=== PATIENT | male | born 1975 | race Caucasian/White ===

== ENCOUNTER 2019-05-02 08:59 | Inpatient (IN) | payer OTHER | END 2019-05-06 11:40 | disposition home or self-care (01) | LOC: YASAS 08:59 → Y6N 05-04 20:14 → YASAS 09:06 → Y6N 12:14 ==

== ENCOUNTER 2019-12-07 10:41 | Inpatient (IN) | payer OTHER ==
[2019-12-07 11:13] VITALS: BMI 30.2
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
[2019-12-07] MEDS ORDERED: chlordiazePOXIDE HCL 25 MG CAPSULE PO PRN (14:18)
[2019-12-07] MEDS ORDERED: MAGNESIUM CITRATE 300 ML BOTTLE PO PRN (14:18)
[2019-12-07] MEDS ORDERED: hydrOXYzine PAMOATE 25 MG CAPSULE (FP) PO PRN (14:18)
[2019-12-07] MEDS ORDERED: MENTHOL/PHENOL 1 EACH UD MM PRN (14:18)
[2019-12-07] MEDS ORDERED: MAGNESIUM HYDROX 2400MG/30ML ORAL SUSPENSION 30 ML CUP PO PRN (14:18)
[2019-12-07] MEDS ORDERED: BISMUTH SUBSALICYLATE 262 MG/15 ML BTL PO PRN (14:18)
[2019-12-07] MEDS ORDERED: IBUPROFEN 400 MG TABLET (FP) PO PRN (14:18)
[2019-12-07] MEDS ORDERED: MAG HYDROX/AL HYDROX/SIMETH 30 ML UNIT-DOSE CUP PO PRN (14:18)
[2019-12-07] MEDS ORDERED: METHOCARBAMOL 500 MG TABLET PO PRN (14:18)
[2019-12-07] MEDS ORDERED: ACETAMINOPHEN 325 MG TABLET (FP) PO PRN ×2 (14:18)
[2019-12-07] MEDS ORDERED: MELATONIN 5 MG TABLETS PO PRN (14:18)
--- NOTE | 2019-12-07 14:22 | PN ---
Teaching Attending Note Name of Resident: Curt Catherine ATTENDING PHYSICIAN STATEMENT I saw and evaluated the patient. I reviewed the resident's note and discussed the case with the resident. I agree with the resident's findings and plan as documented. SUBJECTIVE: pt here requesting detox from etoh use , s/p ER @ [facility] x 20 hrs givem Librium and Ativan in the ER . Denies other illicits or tobacco. OBJECTIVE: wnwd , tremulous Vital Signs - 24 hr 12/07/19 10:59 Temperature 98.5 F Pulse Rate 107 H Respiratory 20 Rate Blood Pressure 151/98 ASSESSMENT AND PLAN: Alcohol dependence - Librium detox.
[2019-12-07] MEDS ORDERED: chlordiazePOXIDE HCL 25 MG CAPSULE PO ONE (15:30)
[2019-12-07] MEDS ORDERED: INSULIN SLIDING SCALE (NOVOLOG) 1 VIAL SQ SCH (16:30)
[2019-12-07] MEDS: chlordiazePOXIDE HCL 25 MG CAPSULE PO SCH ×2 (17:13→22:33)
[2019-12-07] MEDS: THIAMINE HCL 100 MG TABLET (FP) PO SCH (22:33)
[2019-12-08] MEDS: chlordiazePOXIDE HCL 25 MG CAPSULE PO SCH ×4 (06:48→22:23)
[2019-12-08 09:45] LABS: HEMATOCRIT 42.5 % (35.4-49); HEMOGLOBIN 14.7 GM/dL (11.7-16.9); MCH 32.8 pg (25.7-33.7); MCHC 34.5 g/dl (32.0-35.9); MEAN CELL VOLUME 95.2 fl (80-96); MEAN PLT VOLUME 9.1 fl (7.5-11.1); PLATELET COUNT 126 K/MM3 (134-434); RBC 4.47 M/mm3 (4.00-5.60); RDW 14.1 % (11.9-15.9); WHITE BLOOD COUNT 3.6 K/mm3 (4.0-10.0)
[2019-12-08 09:51] LABS: ALBUMIN 3.2 g/dl (3.4-5.0); BILIRUBIN,TOTAL 1.6 mg/dL (0.2-1); BLOOD UREA NITROGEN 6.2 mg/dL (7-18); CALCIUM 8.3 mg/dL (8.5-10.1); CREATININE 0.9 mg/dL (0.55-1.3); POTASSIUM 3.2 mmol/L (3.5-5.1); TOT PROT 6.3 g/dl (6.4-8.2)
[2019-12-08] MEDS ORDERED: PRENATAL VITAMINS W/ FOLIC ACID TABLET (FP) PO SCH (10:00)
--- NOTE | 2019-12-08 14:25 | PN ---
S CIWA - CIWA Score Nausea/Vomitin Muscle Tremors: 1-None Visible, but [place] Anxiety: 1-Mildly Anxious Agitation: 0-Normal Activity Paroxysmal Sweats: 2 Orientation: 0-Oriented Tacttile Disturbances: 1-Very Mild Itch/Numbness Auditory Disturbances: 0-None Visual Disturbances: 0-None Headache: 0-None Present CIWA-Ar Total Score: 8 BHS Progress Note (SOAP) Subjective: sweats,diarrhea, feels librium is too sedating Objective: 12/08/19 14:22 Vital Signs Temperature 98.2 F 12/08/19 13:11 Pulse Rate 71 12/08/19 13:11 Respiratory Rate 18 12/08/19 13:11 Blood Pressure 144/101 H 12/08/19 13:11 O2 Sat by Pulse Oximetry (%) Vital Signs Temperature 98.2 F 12/08/19 13:11 Pulse Rate 71 12/08/19 13:11 Respiratory Rate 18 12/08/19 13:11 Blood Pressure 144/101 H 12/08/19 13:11 O2 Sat by Pulse Oximetry (%) Laboratory Tests 12/07/19 12/08/19 12/08/19 14:53 08:10 08:10 WBC 3.6 L RBC 4.47 Hgb 14.7 Hct 42.5 MCV 95.2 MCH 32.8 MCHC 34.5 RDW 14.1 Plt Count 126 L MPV 9.1 Sodium 140 Potassium 3.2 L Chloride 107 Carbon Dioxide 29 Anion Gap 4 L BUN 6.2 L Creatinine 0.9 Est GFR (CKD-EPI)AfAm 119.97 Est GFR (CKD-EPI)NonAf 103.51 POC Glucometer 115 Random Glucose 94 Calcium 8.3 L Total Bilirubin 1.6 H AST 48 H ALT 51 Alkaline Phosphatase 117 Total Protein 6.3 L Albumin 3.2 L RPR Titer 12/08/19 08:10 WBC RBC Hgb Hct MCV MCH MCHC RDW Plt Count MPV Sodium Potassium Chloride Carbon Dioxide Anion Gap BUN Creatinine Est GFR (CKD-EPI)AfAm Est GFR (CKD-EPI)NonAf POC Glucometer Random Glucose Calcium Total Bilirubin AST ALT Alkaline Phosphatase Total Protein Albumin RPR Titer Nonreactive pt aox 3 in nad c/o being too sedated with librium Assessment: 12/08/19 14:23 withdrawal sx's - over sedated with librium \hypokalemia 12/08/19 14:27 Plan: withdrawal sxls , increase fluids hold librium kcl 40 becky x 2 dose
[2019-12-08] MEDS: POTASSIUM CHLORIDE ORAL LIQUID 20 MEQ/15 ML PO SCH ×2 (15:50→19:11)
[2019-12-08] MEDS ORDERED: LOPERAMIDE HCL 2 MG CAPSULE PO PRN (18:07)
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
[2019-12-08] MEDS: THIAMINE HCL 100 MG TABLET (FP) PO SCH (22:23)
[2019-12-09] MEDS ORDERED: chlordiazePOXIDE HCL 25 MG CAPSULE PO SCH (05:00)
[2019-12-09] MEDS ORDERED: buPROPion HCL 100 MG TABLET PO SCH (09:00)
[2019-12-09 09:03] VITALS: BP 124/86; PULSE 77; TEMP 96.2
--- NOTE | 2019-12-09 09:46 | DS ---
[facility] Detox Discharge Summary Admission Date: 12/07/19 Discharge Date: 12/09/19 - History Present History: Alcohol Dependence Additional Comments: 44 years old male admitted on 12/07/19 for alcohol withdrawal sx management treated with librim detox regimen prefers to leave the detox today to begin chemical dependent rehab patient is alert oriented x 3 case discussed with the nurse routine discharge is appropriated respiratory clear lungs bilaterally on auscultation skin warm and dry abdomen soft obese no rebound tenderness - Physical Exam Results Vital Signs: Vital Signs Temperature 96.2 F L 12/09/19 09:02 Pulse Rate 77 12/09/19 09:02 Respiratory Rate 19 12/09/19 09:02 Blood Pressure 124/86 12/09/19 09:02 O2 Sat by Pulse Oximetry (%) Pertinent Admission Physical Exam Findings: alcohol withdrawal Laboratory Last Values WBC 3.6 K/mm3 (4.0-10.0) L 12/08/19 08:10 RBC 4.47 M/mm3 (4.00-5.60) 12/08/19 08:10 Hgb 14.7 GM/dL (11.7-16.9) 12/08/19 08:10 Hct 42.5 % (35.4-49) 12/08/19 08:10 MCV 95.2 fl (80-96) 12/08/19 08:10 MCH 32.8 pg (25.7-33.7) 12/08/19 08:10 MCHC 34.5 g/dl (32.0-35.9) 12/08/19 08:10 RDW 14.1 % (11.9-15.9) 12/08/19 08:10 Plt Count 126 K/MM3 (134-434) L 12/08/19 08:10 MPV 9.1 fl (7.5-11.1) 12/08/19 08:10 Sodium 140 mmol/L (136-145) 12/08/19 08:10 Potassium 3.2 mmol/L (3.5-5.1) L 12/08/19 08:10 Chloride 107 mmol/L (98-107) 12/08/19 08:10 Carbon Dioxide 29 mmol/L (21-32) 12/08/19 08:10 Anion Gap 4 MMOL/L (8-16) L 12/08/19 08:10 BUN 6.2 mg/dL (7-18) L 12/08/19 08:10 Creatinine 0.9 mg/dL (0.55-1.3) 12/08/19 08:10 Est GFR (CKD-EPI)AfAm 119.97 12/08/19 08:10 Est GFR (CKD-EPI)NonAf 103.51 12/08/19 08:10 POC Glucometer 115 UNITS (80-120) 12/07/19 14:53 Random Glucose 94 mg/dL (74-106) 12/08/19 08:10 Calcium 8.3 mg/dL (8.5-10.1) L 12/08/19 08:10 Total Bilirubin 1.6 mg/dL (0.2-1) H 12/08/19 08:10 AST 48 U/L (15-37) H 12/08/19 08:10 ALT 51 U/L (13-61) 12/08/19 08:10 Alkaline Phosphatase 117 U/L (45-117) 12/08/19 08:10 Total Protein 6.3 g/dl (6.4-8.2) L 12/08/19 08:10 Albumin 3.2 g/dl (3.4-5.0) L 12/08/19 08:10 RPR Titer Nonreactive (NONREACTIVE) 12/08/19 08:10 lab noted low K+ received 80meq K+ supplement patient agrees to follow up with his primary care provider or [facility] service for follow up - Treatment Hospital Course: Detox Protocol Followed, Detoxed Safely, Responded well, Discharged Condition Good, Rehab Referral Accepted Patient has Accepted [facility] Referral [facility] - Medication Discharge Medications: Ambulatory Orders Acamprosate Calcium [Campral -] 666 mg PO TID 12/07/19 Bupropion HCl [Wellbutrin -] 100 mg PO BID 12/07/19 Folic Acid 1 mg PO DAILY 12/07/19 Multivitamins [Multivit ([facility] Formulary)] 1 tab PO DAILY 12/07/19 Pantoprazole Sodium [Protonix] 40 mg PO DAILY 12/07/19 Thiamine HCl [B-1] 100 mg PO DAILY 12/07/19 - Diagnosis (1) Alcohol dependence with uncomplicated withdrawal Status: Acute (2) Tobacco abuse Status: Acute (3) Alcohol dependence with uncomplicated intoxication Status: Acute (4) Substance induced mood disorder Status: Suspected - AMA Did Patient Leave Against Medical Advice: No CIWA Score - CIWA Score Nausea/Vomitin-Mild Nausea/No Vomiting Muscle Tremors: 1-None Visible, but [place] Anxiety: 1-Mildly Anxious Agitation: 0-Normal Activity Paroxysmal Sweats: No Perspiration Orientation: 0-Oriented Tacttile Disturbances: 0-None Auditory Disturbances: 0-None Visual Disturbances: 0-None Headache: 0-None Present CIWA-Ar Total Score: 3
[2019-12-10] MEDS ORDERED: chlordiazePOXIDE HCL 10 MG CAPSULE PO PRN
[2019-12-10] MEDS ORDERED: chlordiazePOXIDE HCL 10 MG CAPSULE PO SCH (05:00)
[2019-12-11] MEDS ORDERED: chlordiazePOXIDE HCL 10 MG CAPSULE PO SCH (05:00)
[2019-12-12] MEDS ORDERED: chlordiazePOXIDE HCL 10 MG CAPSULE PO ONE (05:00)
== END 2019-12-09 10:52 | disposition home or self-care (01) | DRG 775 ==
LOC: YASAS 10:41 → Y3N 15:20
PROVIDERS: ADMIT Allergy & Immunology; ATTEND Allergy & Immunology
PROC: HZ2ZZZZ Detoxification Services for Substance Abuse Treatment (ICD-10-PCS; principal; 2019-12-07)
DX: F10.230 Alcohol dependence with withdrawal, uncomplicated (principal); F10.220 Alcohol dependence with intoxication, uncomplicated; Z72.0 Tobacco use; F19.24 Other psychoactive substance dependence with psychoactive substance-induced mood disorder; F41.9 Anxiety disorder, unspecified; F32.9 Major depressive disorder, single episode, unspecified; E11.9 Type 2 diabetes mellitus without complications; E87.6 Hypokalemia; Z86.69 Personal history of other diseases of the nervous system and sense organs
CPT/HCPCS: 36415; 80053; 82962; 85027; 86593

== ENCOUNTER 2020-11-20 15:21 | Inpatient (IN) | payer OTHER ==
[2020-11-20 17:16] VITALS: BMI 28.9
[2020-11-20] MEDS ORDERED: ONDANSETRON *ODT* 4 MG TABLET SL ONE (17:19)
[2020-11-20] MEDS ORDERED: chlordiazePOXIDE HCL 25 MG CAPSULE PO ONE (17:19)
[2020-11-20] MEDS ORDERED: chlordiazePOXIDE HCL 25 MG CAPSULE ONE (17:27)
[2020-11-20] MEDS ORDERED: ONDANSETRON *ODT* 4 MG TABLET ONE ×2 (17:27→17:29)
[2020-11-20] MEDS ORDERED: guaiFENesin 200 MG/10 ML 10 ML UNIT-DOSE CUPS PO PRN (17:43)
[2020-11-20] MEDS ORDERED: IBUPROFEN 400 MG TABLET (FP) PO PRN (17:43)
[2020-11-20] MEDS ORDERED: MAGNESIUM HYDROX 2400MG/30ML ORAL SUSPENSION 30 ML CUP PO PRN (17:43)
[2020-11-20] MEDS ORDERED: MENTHOL/PHENOL 1 EACH UD MM PRN (17:43)
[2020-11-20] MEDS ORDERED: ONDANSETRON *ODT* 4 MG TABLET SL PRN (17:43)
[2020-11-20] MEDS ORDERED: DICYCLOMINE HCL 10 MG CAPSULE PO PRN (17:43)
[2020-11-20] MEDS ORDERED: METHOCARBAMOL 500 MG TABLET PO PRN (17:43)
[2020-11-20] MEDS ORDERED: MAGNESIUM CITRATE 300 ML BOTTLE PO PRN (17:43)
[2020-11-20] MEDS ORDERED: ACETAMINOPHEN 325 MG TABLET (FP) PO PRN (17:43)
[2020-11-20] MEDS ORDERED: P-EPHED 60MG/TRIPROLIDI 2.5MG TABLET PO PRN (17:43)
[2020-11-20] MEDS ORDERED: MAG HYDROX/AL HYDROX/SIMETH 30 ML UNIT-DOSE CUP PO PRN (17:43)
[2020-11-20] MEDS ORDERED: BISMUTH SUBSALICYLATE 524 MG/30 ML PO PRN (17:43)
[2020-11-20] MEDS ORDERED: hydrOXYzine PAMOATE 25 MG CAPSULE (FP) PO PRN (17:43)
[2020-11-20] MEDS ORDERED: chlordiazePOXIDE HCL 25 MG CAPSULE PO PRN (17:43)
[2020-11-20] MEDS: PANTOPRAZOLE 40 MG TABLET PO SCH (20:23)
[2020-11-20] MEDS: THIAMINE HCL 100 MG TABLET (FP) PO SCH (22:36)
[2020-11-20] MEDS: chlordiazePOXIDE HCL 25 MG CAPSULE PO SCH (22:36)
[2020-11-20] MEDS: MELATONIN 5 MG TABLETS PO SCH (22:36)
[2020-11-20] MEDS: ACETAMINOPHEN 325 MG TABLET (FP) PO PRN (22:37)
[2020-11-21] MEDS: chlordiazePOXIDE HCL 25 MG CAPSULE PO SCH ×4 (05:32→22:21)
[2020-11-21] MEDS ORDERED: MASKS NR ONE (05:34)
[2020-11-21] MEDS: ACETAMINOPHEN 325 MG TABLET (FP) PO PRN ×2 (05:37→17:49)
[2020-11-21] MEDS: PRENATAL VITAMINS W/ FOLIC ACID TABLET (FP) PO SCH (10:14)
[2020-11-21] MEDS: PANTOPRAZOLE 40 MG TABLET PO SCH (10:14)
[2020-11-21 10:57] LABS: HEMOGLOBIN 13.7 GM/dL (11.7-16.9); MCH 33.1 pg (25.7-33.7); MCHC 34.2 g/dl (32.0-35.9); MEAN CELL VOLUME 96.8 fl (80-96); MEAN PLT VOLUME 9.3 fl (7.5-11.1); PLATELET COUNT 151 K/MM3 (134-434); RBC 4.13 M/mm3 (4.00-5.60); RDW 15.1 % (11.9-15.9); WHITE BLOOD COUNT 3.7 K/mm3 (4.0-10.0)
[2020-11-21 10:59] LABS: PH,URINE 6.5 (5.0-8.0); URINE APPEARANCE Error; URINE BILIRUBIN NEGATIVE (NEGATIVE); URINE COLOR ORANGE; URINE GLUCOSE (UA) NEGATIVE (NEGATIVE); URINE KETONE TRACE (NEGATIVE); URINE LEUK ESTERASE NEGATIVE (NEGATIVE); URINE NITRITE NEGATIVE (NEGATIVE); URINE PROTEIN NEGATIVE (NEGATIVE)
[2020-11-21 11:29] LABS: ALBUMIN 3.3 g/dl (3.4-5.0); BILIRUBIN,TOTAL 1.3 mg/dL (0.2-1); BLOOD UREA NITROGEN 12.8 mg/dL (7-18); CALCIUM 8.5 mg/dL (8.5-10.1); TOT PROT 6.5 g/dl (6.4-8.2)
[2020-11-21] MEDS ORDERED: PNEUMOC 13-VAL CONJ-DIP CRM/PF 0.5 ML DISP.SYRIN IM ONE (12:00)
[2020-11-21] MEDS: buPROPion HCL 100 MG TABLET PO SCH (18:00)
[2020-11-21] MEDS: MELATONIN 5 MG TABLETS PO SCH (22:21)
[2020-11-21] MEDS: THIAMINE HCL 100 MG TABLET (FP) PO SCH (22:21)
[2020-11-22] MEDS: chlordiazePOXIDE HCL 25 MG CAPSULE PO SCH ×4 (05:54→22:28)
[2020-11-22] MEDS: buPROPion HCL 100 MG TABLET PO SCH ×2 (11:01→17:30)
[2020-11-22] MEDS: PANTOPRAZOLE 40 MG TABLET PO SCH (11:02)
[2020-11-22] MEDS: PRENATAL VITAMINS W/ FOLIC ACID TABLET (FP) PO SCH (11:02)
[2020-11-22] MEDS: POTASSIUM CHLORIDE TABS 20 MEQ TABLET.ER (FP) PO SCH (11:02)
[2020-11-22 21:57] VITALS: BP 134/93; PULSE 70; TEMP 98
[2020-11-22] MEDS: THIAMINE HCL 100 MG TABLET (FP) PO SCH (22:29)
[2020-11-22] MEDS: MELATONIN 5 MG TABLETS PO SCH (22:29)
[2020-11-23] MEDS ORDERED: chlordiazePOXIDE HCL 10 MG CAPSULE PO PRN
[2020-11-23] MEDS ORDERED: chlordiazePOXIDE HCL 10 MG CAPSULE PO SCH (05:00)
[2020-11-23] MEDS: ACETAMINOPHEN 325 MG TABLET (FP) PO PRN (05:32)
[2020-11-23] MEDS: buPROPion HCL 100 MG TABLET PO SCH (09:07)
[2020-11-23] MEDS: POTASSIUM CHLORIDE TABS 20 MEQ TABLET.ER (FP) PO SCH (09:07)
[2020-11-23 09:19] LABS: BASO % 0.3 % (0-2.0); EOS % 3.1 % (0-4.5); HEMATOCRIT 40.3 % (35.4-49); HEMOGLOBIN 13.6 GM/dL (11.7-16.9); LYMPH % 16.5 % (8-40); MCH 32.8 pg (25.7-33.7); MCHC 33.7 g/dl (32.0-35.9); MEAN CELL VOLUME 97.3 fl (80-96); MEAN PLT VOLUME 9.6 fl (7.5-11.1); MONO % 8.8 % (3.8-10.2); NEUT % 71.3 % (42.8-82.8); PLATELET COUNT 165 K/MM3 (134-434); RBC 4.14 M/mm3 (4.00-5.60); WHITE BLOOD COUNT 7.2 K/mm3 (4.0-10.0)
[2020-11-23 10:28] LABS: ALBUMIN 3.6 g/dl (3.4-5.0); BLOOD UREA NITROGEN 12.7 mg/dL (7-18); CALCIUM 8.6 mg/dL (8.5-10.1)
[2020-11-23 10:33] LABS: BILIRUBIN,TOTAL 0.6 mg/dL (0.2-1)
[2020-11-24] MEDS ORDERED: chlordiazePOXIDE HCL 10 MG CAPSULE PO SCH (05:00)
[2020-11-25] MEDS ORDERED: chlordiazePOXIDE HCL 10 MG CAPSULE PO ONE (05:00)
[2020-11-27 17:49] LABS: HIV INTERPRETATION NEGATIVE (NEGATIVE)
== END 2020-11-23 09:19 | disposition left against medical advice (07) | DRG 770 ==
LOC: YASAS 15:21 → Y6N 18:50
PROVIDERS: ADMIT Allergy & Immunology; ATTEND Allergy & Immunology
PROC: HZ2ZZZZ Detoxification Services for Substance Abuse Treatment (ICD-10-PCS; principal; 2020-11-20)
DX: F10.230 Alcohol dependence with withdrawal, uncomplicated (principal); F10.220 Alcohol dependence with intoxication, uncomplicated; F10.24 Alcohol dependence with alcohol-induced mood disorder; F10.282 Alcohol dependence with alcohol-induced sleep disorder; F17.210 Nicotine dependence, cigarettes, uncomplicated; F32.9 Major depressive disorder, single episode, unspecified; F19.24 Other psychoactive substance dependence with psychoactive substance-induced mood disorder; I10 Essential (primary) hypertension; E63.8 Other specified nutritional deficiencies; E75 Disorders of sphingolipid metabolism and other lipid storage disorders; K29.20 Alcoholic gastritis without bleeding; Z86.69 Personal history of other diseases of the nervous system and sense organs; Z91.14 Patient's other noncompliance with medication regimen
CPT/HCPCS: 36415; 80053; 81003; 82962; 85025; 85027; 86780; 87389; 93005; 93010; C9803; Q0162; U0003

== ENCOUNTER 2022-01-30 08:30 | Inpatient (IN) | payer OTHER ==
[2022-01-30 08:55] VITALS: BMI 29.6
[2022-01-30] MEDS ORDERED: chlordiazePOXIDE HCL 25 MG CAPSULE PO PRN (10:02)
[2022-01-30] MEDS ORDERED: MAGNESIUM HYDROX 2400MG/30ML ORAL SUSPENSION 30 ML CUP PO PRN (10:02)
[2022-01-30] MEDS ORDERED: NICOTINE 10 MG CARTRIDGE (INHALER) IH PRN (10:02)
[2022-01-30] MEDS ORDERED: IBUPROFEN 400 MG TABLET (FP) PO PRN (10:02)
[2022-01-30] MEDS ORDERED: MAG HYDROX/AL HYDROX/SIMETH 30 ML UNIT-DOSE CUP PO PRN (10:02)
[2022-01-30] MEDS ORDERED: MAGNESIUM CITRATE 300 ML BOTTLE PO PRN (10:02)
[2022-01-30] MEDS ORDERED: ACETAMINOPHEN 325 MG TABLET (FP) PO PRN (10:02)
[2022-01-30] MEDS ORDERED: MENTHOL/PHENOL 1 EACH UD MM PRN (10:02)
[2022-01-30] MEDS ORDERED: BISMUTH SUBSALICYLATE 524 MG/30 ML PO PRN (10:02)
[2022-01-30] MEDS: ONDANSETRON *ODT* 4 MG TABLET SL PRN ×2 (10:30→18:17)
[2022-01-30] MEDS ORDERED: chlordiazePOXIDE HCL 25 MG CAPSULE ONE (11:02)
[2022-01-30] MEDS: chlordiazePOXIDE HCL 25 MG CAPSULE PO SCH ×3 (11:04→22:50)
[2022-01-30] MEDS: hydrOXYzine PAMOATE 25 MG CAPSULE (FP) PO SCH ×3 (14:12→22:50)
[2022-01-30] MEDS: ACAMPROSATE CALCIUM 333 MG TABLET.DR PO SCH ×2 (16:13→22:50)
[2022-01-30 16:20] LABS: CALCIUM 8.1 mg/dL (8.5-10.1)
[2022-01-30 16:21] LABS: ALBUMIN 3.8 g/dl (3.4-5.0); BLOOD UREA NITROGEN 9.2 mg/dL (7-18)
[2022-01-30 16:22] LABS: HEMATOCRIT 42.5 % (35.4-49); HEMOGLOBIN 14.5 GM/dL (11.7-16.9); MCH 32.9 pg (25.7-33.7); MCHC 34.2 g/dl (32.0-35.9); MEAN CELL VOLUME 96.4 fl (80-96); MEAN PLT VOLUME 8.7 fl (7.5-11.1); PLATELET COUNT 184 10^3/uL (134-434); RBC 4.41 M/mm3 (4.00-5.60); RDW 14.5 % (11.9-15.9); WHITE BLOOD COUNT 3.8 K/mm3 (4.0-10.0)
[2022-01-30 16:25] LABS: BILIRUBIN,TOTAL 0.5 mg/dL (0.2-1); TOT PROT 6.9 g/dl (6.4-8.2)
[2022-01-30] MEDS: BRIMONIDINE TARTRATE 0.15% OPHTHALMIC 5 ML BOTTLE OU SCH (22:49)
[2022-01-30] MEDS: ATORVASTATIN CA 20 MG TABLET (FP) PO SCH (22:50)
[2022-01-30] MEDS: MELATONIN 5 MG TABLETS PO SCH (22:50)
[2022-01-30] MEDS: THIAMINE HCL 100 MG TABLET (FP) PO SCH (22:50)
[2022-01-30] MEDS: GABAPENTIN 300 MG CAPSULE PO SCH (22:50)
[2022-01-31] MEDS: chlordiazePOXIDE HCL 25 MG CAPSULE PO SCH ×4 (06:47→22:43)
[2022-01-31] MEDS: hydrOXYzine PAMOATE 25 MG CAPSULE (FP) PO SCH ×5 (06:48→22:38)
[2022-01-31] MEDS: ONDANSETRON *ODT* 4 MG TABLET SL PRN ×2 (06:50→18:10)
[2022-01-31] MEDS: ACETAMINOPHEN 325 MG TABLET (FP) PO PRN ×2 (06:51→22:42)
[2022-01-31] MEDS: BRIMONIDINE TARTRATE 0.15% OPHTHALMIC 5 ML BOTTLE OU SCH ×2 (10:24→22:40)
[2022-01-31] MEDS: FOLIC ACID 1 MG TABLET (FP) PO SCH (10:25)
[2022-01-31] MEDS: PRENATAL VITAMINS W/ FOLIC ACID TABLET (FP) PO SCH (10:26)
[2022-01-31] MEDS: buPROPion HCL 100 MG TABLET PO SCH ×2 (10:27→19:24)
[2022-01-31] MEDS: ACAMPROSATE CALCIUM 333 MG TABLET.DR PO SCH ×3 (10:27→22:41)
[2022-01-31] MEDS: METHOCARBAMOL 500 MG TABLET PO PRN (18:10)
[2022-01-31] MEDS: ATORVASTATIN CA 20 MG TABLET (FP) PO SCH (22:38)
[2022-01-31] MEDS: THIAMINE HCL 100 MG TABLET (FP) PO SCH (22:39)
[2022-01-31] MEDS: MELATONIN 5 MG TABLETS PO SCH (22:39)
[2022-01-31] MEDS: GABAPENTIN 300 MG CAPSULE PO SCH (22:39)
[2022-01-31] MEDS: LOPERAMIDE HCL 2 MG CAPSULE PO PRN (22:46)
[2022-02-01] MEDS ORDERED: chlordiazePOXIDE HCL 25 MG CAPSULE PO SCH (05:00)
[2022-02-01] MEDS: ACAMPROSATE CALCIUM 333 MG TABLET.DR PO SCH ×3 (06:11→23:13)
[2022-02-01] MEDS: hydrOXYzine PAMOATE 25 MG CAPSULE (FP) PO SCH ×5 (06:11→22:27)
[2022-02-01] MEDS: LOPERAMIDE HCL 2 MG CAPSULE PO PRN ×2 (06:25→22:36)
[2022-02-01] MEDS: FOLIC ACID 1 MG TABLET (FP) PO SCH (10:06)
[2022-02-01] MEDS: buPROPion HCL 100 MG TABLET PO SCH ×2 (10:06→17:25)
[2022-02-01] MEDS: PRENATAL VITAMINS W/ FOLIC ACID TABLET (FP) PO SCH (10:06)
[2022-02-01] MEDS: BRIMONIDINE TARTRATE 0.15% OPHTHALMIC 5 ML BOTTLE OU SCH ×2 (10:06→22:27)
[2022-02-01] MEDS: chlordiazePOXIDE HCL 10 MG CAPSULE PO SCH ×2 (10:49→22:30)
[2022-02-01 13:07] LABS: SARS-CoV-2 NAA Not Detected (Not Detected)
[2022-02-01] MEDS: METHOCARBAMOL 500 MG TABLET PO PRN (17:24)
[2022-02-01] MEDS: ACETAMINOPHEN 325 MG TABLET (FP) PO PRN (17:25)
[2022-02-01] MEDS: GABAPENTIN 300 MG CAPSULE PO SCH (22:27)
[2022-02-01] MEDS: ATORVASTATIN CA 20 MG TABLET (FP) PO SCH (22:27)
[2022-02-01] MEDS: THIAMINE HCL 100 MG TABLET (FP) PO SCH (22:37)
[2022-02-01] MEDS: MELATONIN 5 MG TABLETS PO SCH (22:37)
[2022-02-02] MEDS ORDERED: chlordiazePOXIDE HCL 10 MG CAPSULE PO PRN
[2022-02-02] MEDS ORDERED: chlordiazePOXIDE HCL 10 MG CAPSULE PO SCH (05:00)
[2022-02-02] MEDS: ACAMPROSATE CALCIUM 333 MG TABLET.DR PO SCH (05:39)
[2022-02-02] MEDS: hydrOXYzine PAMOATE 25 MG CAPSULE (FP) PO SCH ×2 (05:39→09:25)
[2022-02-02 08:43] VITALS: BP 143/86; PULSE 101; TEMP 98.3
[2022-02-02] MEDS: BRIMONIDINE TARTRATE 0.15% OPHTHALMIC 5 ML BOTTLE OU SCH (09:25)
[2022-02-02] MEDS: buPROPion HCL 100 MG TABLET PO SCH (09:25)
[2022-02-02] MEDS: PRENATAL VITAMINS W/ FOLIC ACID TABLET (FP) PO SCH (09:25)
[2022-02-02] MEDS: FOLIC ACID 1 MG TABLET (FP) PO SCH (09:25)
[2022-02-02] MEDS ORDERED: chlordiazePOXIDE HCL 10 MG CAPSULE PO ONE (09:55)
[2022-02-03] MEDS ORDERED: chlordiazePOXIDE HCL 10 MG CAPSULE PO SCH (05:00)
[2022-02-04] MEDS ORDERED: chlordiazePOXIDE HCL 10 MG CAPSULE PO ONE (05:00)
== END 2022-02-02 09:17 | disposition home or self-care (01) | DRG 775 ==
LOC: YASAS 08:30 → Y6N 10:51 → Y3N 11:36
PROVIDERS: ADMIT Allergy & Immunology; ATTEND Allergy & Immunology
PROC: HZ2ZZZZ Detoxification Services for Substance Abuse Treatment (ICD-10-PCS; principal; 2022-01-30)
DX: F10.230 Alcohol dependence with withdrawal, uncomplicated (principal); F10.282 Alcohol dependence with alcohol-induced sleep disorder; F19.24 Other psychoactive substance dependence with psychoactive substance-induced mood disorder; F41.9 Anxiety disorder, unspecified; F32.A Depression, unspecified; E78.5 Hyperlipidemia, unspecified; I10 Essential (primary) hypertension; Z91.14 Patient's other noncompliance with medication regimen; Z86.69 Personal history of other diseases of the nervous system and sense organs; Z88.8 Allergy status to other drugs, medicaments and biological substances
CPT/HCPCS: 36415; 80053; 82962; 85027; 86780; 93005; 93010; C9803; Q0162; U0003; U0005

== ENCOUNTER 2022-05-13 14:33 | Inpatient (IN) | payer OTHER ==
[2022-05-13 15:08] VITALS: BMI 29.8
[2022-05-13] MEDS ORDERED: MAGNESIUM HYDROX 2400MG/30ML ORAL SUSPENSION 30 ML CUP PO PRN (16:43)
[2022-05-13] MEDS ORDERED: LOPERAMIDE HCL 2 MG CAPSULE PO PRN (16:43)
[2022-05-13] MEDS ORDERED: IBUPROFEN 600 MG TABLET (FP) PO PRN (16:43)
[2022-05-13] MEDS ORDERED: BENZOCAINE/MENTHOL (CHLORASEPTIC ) LOZENGE MM PRN (16:43)
[2022-05-13] MEDS ORDERED: MAG HYDROX/AL HYDROX/SIMETH 30 ML UNIT-DOSE CUP PO PRN (16:43)
[2022-05-13] MEDS ORDERED: IBUPROFEN 400 MG TABLET (FP) PO PRN (16:43)
[2022-05-13] MEDS ORDERED: DICYCLOMINE HCL 10 MG CAPSULE PO PRN (16:43)
[2022-05-13] MEDS ORDERED: MAGNESIUM CITRATE 300 ML BOTTLE PO PRN (16:43)
[2022-05-13] MEDS ORDERED: chlordiazePOXIDE HCL 25 MG CAPSULE PO PRN (16:43)
[2022-05-13] MEDS ORDERED: ACETAMINOPHEN 325 MG TABLET (FP) PO PRN (16:43)
[2022-05-13] MEDS ORDERED: chlordiazePOXIDE HCL 25 MG CAPSULE ONE (17:29)
[2022-05-13] MEDS ORDERED: hydrOXYzine PAMOATE 25 MG CAPSULE (FP) PO ONE (17:29)
[2022-05-13] MEDS: hydrOXYzine PAMOATE 25 MG CAPSULE (FP) PO SCH ×2 (17:42→22:00)
[2022-05-13] MEDS: chlordiazePOXIDE HCL 25 MG CAPSULE PO SCH ×2 (17:43→22:01)
[2022-05-13] MEDS: ONDANSETRON *ODT* 4 MG TABLET SL PRN ×2 (21:04→22:00)
[2022-05-13] MEDS: MELATONIN 5 MG TABLETS PO SCH (22:00)
[2022-05-13] MEDS: ATORVASTATIN CA 20 MG TABLET (FP) PO SCH (22:00)
[2022-05-13] MEDS: THIAMINE HCL 100 MG TABLET (FP) PO SCH (22:00)
[2022-05-13] MEDS: BRIMONIDINE TARTRATE 0.15% OPHTHALMIC 5 ML BOTTLE OU SCH (22:50)
[2022-05-13] MEDS: METHOCARBAMOL 500 MG TABLET PO PRN (23:55)
[2022-05-14] MEDS: hydrOXYzine PAMOATE 25 MG CAPSULE (FP) PO SCH ×5 (05:24→22:21)
[2022-05-14] MEDS: METHOCARBAMOL 500 MG TABLET PO PRN ×3 (05:24→22:27)
[2022-05-14] MEDS: chlordiazePOXIDE HCL 25 MG CAPSULE PO SCH ×4 (05:25→22:23)
[2022-05-14 09:51] LABS: HEMATOCRIT 41.3 % (35.4-49); MCHC 33.9 g/dl (32.0-35.9); MEAN CELL VOLUME 94.6 fl (80-96); MEAN PLT VOLUME 8.9 fl (7.5-11.1); PLATELET COUNT 184 10^3/uL (134-434); RBC 4.37 M/mm3 (4.00-5.60); RDW 14.7 % (11.9-15.9); WHITE BLOOD COUNT 3.7 K/mm3 (4.0-10.0)
[2022-05-14] MEDS: PRENATAL VITAMINS W/ FOLIC ACID TABLET (FP) PO SCH (10:11)
[2022-05-14] MEDS: BRIMONIDINE TARTRATE 0.15% OPHTHALMIC 5 ML BOTTLE OU SCH ×2 (10:11→22:27)
[2022-05-14 10:29] LABS: ALBUMIN 3.5 g/dl (3.4-5.0); CALCIUM 8.6 mg/dL (8.5-10.1)
[2022-05-14 10:32] LABS: CREATININE 0.9 mg/dL (0.55-1.3)
[2022-05-14 10:34] LABS: BILIRUBIN,TOTAL 1.2 mg/dL (0.2-1)
[2022-05-14 10:35] LABS: TOT PROT 6.7 g/dl (6.4-8.2)
[2022-05-14] MEDS: BISMUTH SUBSALICYLATE 524 MG/30 ML PO PRN (17:35)
[2022-05-14] MEDS: THIAMINE HCL 100 MG TABLET (FP) PO SCH (22:21)
[2022-05-14] MEDS: MELATONIN 5 MG TABLETS PO SCH (22:21)
[2022-05-14] MEDS: ATORVASTATIN CA 20 MG TABLET (FP) PO SCH (22:21)
[2022-05-14] MEDS: ACETAMINOPHEN 325 MG TABLET (FP) PO PRN (22:24)
[2022-05-15] MEDS: hydrOXYzine PAMOATE 25 MG CAPSULE (FP) PO SCH ×5 (06:06→22:28)
[2022-05-15] MEDS: chlordiazePOXIDE HCL 25 MG CAPSULE PO SCH ×4 (06:07→22:29)
[2022-05-15] MEDS: BRIMONIDINE TARTRATE 0.15% OPHTHALMIC 5 ML BOTTLE OU SCH ×2 (10:27→22:27)
[2022-05-15] MEDS: PRENATAL VITAMINS W/ FOLIC ACID TABLET (FP) PO SCH (10:28)
[2022-05-15] MEDS: BISMUTH SUBSALICYLATE 524 MG/30 ML PO PRN (15:57)
[2022-05-15] MEDS: ATORVASTATIN CA 20 MG TABLET (FP) PO SCH (22:28)
[2022-05-15] MEDS: THIAMINE HCL 100 MG TABLET (FP) PO SCH (22:28)
[2022-05-15] MEDS: MELATONIN 5 MG TABLETS PO SCH (22:28)
[2022-05-16] MEDS ORDERED: chlordiazePOXIDE HCL 10 MG CAPSULE PO PRN
[2022-05-16] MEDS: METHOCARBAMOL 500 MG TABLET PO PRN ×2 (01:07→22:49)
[2022-05-16] MEDS: hydrOXYzine PAMOATE 25 MG CAPSULE (FP) PO SCH ×5 (05:27→22:48)
[2022-05-16] MEDS: chlordiazePOXIDE HCL 10 MG CAPSULE PO SCH ×4 (05:27→22:48)
[2022-05-16] MEDS: BRIMONIDINE TARTRATE 0.15% OPHTHALMIC 5 ML BOTTLE OU SCH ×2 (10:11→22:46)
[2022-05-16] MEDS: PRENATAL VITAMINS W/ FOLIC ACID TABLET (FP) PO SCH (10:12)
[2022-05-16] MEDS: ATORVASTATIN CA 20 MG TABLET (FP) PO SCH (22:47)
[2022-05-16] MEDS: MELATONIN 5 MG TABLETS PO SCH (22:47)
[2022-05-16] MEDS: THIAMINE HCL 100 MG TABLET (FP) PO SCH (22:48)
[2022-05-17] MEDS: hydrOXYzine PAMOATE 25 MG CAPSULE (FP) PO SCH ×2 (05:18→10:13)
[2022-05-17] MEDS: chlordiazePOXIDE HCL 10 MG CAPSULE PO SCH ×2 (05:18→17:54)
[2022-05-17] MEDS: BRIMONIDINE TARTRATE 0.15% OPHTHALMIC 5 ML BOTTLE OU SCH ×2 (10:12→23:07)
[2022-05-17] MEDS: PRENATAL VITAMINS W/ FOLIC ACID TABLET (FP) PO SCH (10:13)
[2022-05-17] MEDS: ACETAMINOPHEN 325 MG TABLET (FP) PO PRN ×2 (10:14→22:28)
[2022-05-17] MEDS ORDERED: hydrOXYzine PAMOATE 25 MG CAPSULE (FP) PO PRN (11:04)
[2022-05-17] MEDS: MELATONIN 5 MG TABLETS PO SCH (22:26)
[2022-05-17] MEDS: ATORVASTATIN CA 20 MG TABLET (FP) PO SCH (22:27)
[2022-05-17] MEDS: THIAMINE HCL 100 MG TABLET (FP) PO SCH (22:27)
[2022-05-17] MEDS: METHOCARBAMOL 500 MG TABLET PO PRN (22:28)
[2022-05-18] MEDS ORDERED: chlordiazePOXIDE HCL 10 MG CAPSULE PO ONE (05:00)
[2022-05-18 08:54] VITALS: BP 146/98; PULSE 74; TEMP 97.3
[2022-05-18] MEDS: BRIMONIDINE TARTRATE 0.15% OPHTHALMIC 5 ML BOTTLE OU SCH (10:13)
[2022-05-18] MEDS: PRENATAL VITAMINS W/ FOLIC ACID TABLET (FP) PO SCH (10:13)
== END 2022-05-18 10:20 | disposition home or self-care (01) | DRG 775 ==
LOC: YASAS 14:33 → Y3N 17:42
PROVIDERS: ADMIT Allergy & Immunology; ATTEND Surgery
PROC: HZ2ZZZZ Detoxification Services for Substance Abuse Treatment (ICD-10-PCS; principal; 2022-05-13)
DX: F10.230 Alcohol dependence with withdrawal, uncomplicated (principal); F41.9 Anxiety disorder, unspecified; F32.A Depression, unspecified; I10 Essential (primary) hypertension; E78.2 Mixed hyperlipidemia; E11.9 Type 2 diabetes mellitus without complications; Z87.19 Personal history of other diseases of the digestive system; Z86.2 Personal history of diseases of the blood and blood-forming organs and certain disorders involving the immune mechanism; Z88.8 Allergy status to other drugs, medicaments and biological substances
CPT/HCPCS: 36415; 80053; 85027; 86780; C9803-CS; Q0162; U0003; U0005

== ENCOUNTER 2023-07-23 17:46 | Inpatient (IN) | payer OTHER ==
[2023-07-23 18:51] VITALS: BMI 29.2
[2023-07-23] MEDS ORDERED: chlordiazePOXIDE HCL 25 MG CAPSULE PO PRN (18:58)
[2023-07-23] MEDS ORDERED: chlordiazePOXIDE HCL 25 MG CAPSULE PO ONE (18:58)
[2023-07-23] MEDS ORDERED: LORazepam 2 MG/ML SDV VIAL IM ONE (19:00)
[2023-07-23] MEDS ORDERED: PROCHLORPERAZINE INJECTION 10 MG/2 ML VIAL IM ONE (19:06)
[2023-07-23] MEDS ORDERED: ONDANSETRON *ODT* 4 MG TABLET SL PRN (19:08)
[2023-07-23] MEDS ORDERED: ONDANSETRON *ODT* 4 MG TABLET ONE (19:15)
[2023-07-23] MEDS ORDERED: BISMUTH SUBSALICYLATE 524 MG/30 ML PO PRN (19:31)
[2023-07-23] MEDS ORDERED: P-EPHED 60MG/TRIPROLIDI 2.5MG TABLET PO PRN (19:31)
[2023-07-23] MEDS ORDERED: IBUPROFEN 400 MG TABLET (FP) PO PRN (19:31)
[2023-07-23] MEDS ORDERED: MAG HYDROX/AL HYDROX/SIMETH 30 ML UNIT-DOSE CUP PO PRN (19:31)
[2023-07-23] MEDS ORDERED: chlordiazePOXIDE HCL 25 MG CAPSULE ONE (19:31)
[2023-07-23] MEDS ORDERED: BENZONATATE 200 MG CAPSULE PO PRN (19:31)
[2023-07-23] MEDS ORDERED: DICYCLOMINE HCL 10 MG CAPSULE PO PRN (19:31)
[2023-07-23] MEDS ORDERED: POLYETHYLENE GLYCOL (HEALTHYLAX) 3350 17 GM PACKET PO PRN (19:31)
[2023-07-23] MEDS ORDERED: LOPERAMIDE HCL 2 MG CAPSULE PO PRN (19:31)
[2023-07-23] MEDS ORDERED: guaiFENesin 600 MG TABLET.ER (FP) PO PRN (19:31)
[2023-07-23] MEDS ORDERED: MAGNESIUM HYDROX 2400MG/30ML ORAL SUSPENSION 30 ML CUP PO PRN (19:31)
[2023-07-23] MEDS ORDERED: BENZOCAINE/MENTHOL (CHLORASEPTIC ) LOZENGE MM PRN (19:31)
[2023-07-23] MEDS ORDERED: PROCHLORPERAZINE INJECTION 10 MG/2 ML VIAL IVPB PRN (19:38)
[2023-07-23] MEDS ORDERED: METOPROLOL TARTRATE 25 MG TABLET (FP) PO ONE (21:57)
[2023-07-23] MEDS ORDERED: PROCHLORPERAZINE INJECTION 10 MG/2 ML VIAL IM PRN (21:57)
[2023-07-23] MEDS: METHOCARBAMOL 500 MG TABLET PO PRN (22:07)
[2023-07-23] MEDS: THIAMINE HCL 100 MG TABLET (FP) PO SCH (22:07)
[2023-07-23] MEDS: MELATONIN 5 MG TABLETS PO SCH (22:07)
[2023-07-23] MEDS: levETIRAcetam 500 MG TABLET (FP) PO SCH (22:07)
[2023-07-23] MEDS: chlordiazePOXIDE HCL 25 MG CAPSULE PO SCH (22:08)
[2023-07-23] MEDS: ACETAMINOPHEN 325 MG TABLET (FP) PO PRN (22:09)
[2023-07-24] MEDS: IBUPROFEN 600 MG TABLET (FP) PO PRN ×2 (01:15→22:20)
[2023-07-24] MEDS: chlordiazePOXIDE HCL 25 MG CAPSULE PO SCH ×4 (05:57→22:18)
[2023-07-24] MEDS: levETIRAcetam 500 MG TABLET (FP) PO SCH ×2 (10:25→22:18)
[2023-07-24] MEDS: METHOCARBAMOL 500 MG TABLET PO PRN ×2 (10:26→22:21)
[2023-07-24] MEDS: PRENATAL VITAMINS W/ FOLIC ACID TABLET (FP) PO SCH (10:26)
[2023-07-24 10:38] LABS: HEMATOCRIT 43.1 % (35.4-49); HEMOGLOBIN 14.6 GM/dL (11.7-16.9); MCH 31.7 pg (25.7-33.7); MCHC 33.9 g/dl (32.0-35.9); MEAN CELL VOLUME 93.5 fl (80-96); MEAN PLT VOLUME 8.6 fl (7.5-11.1); PLATELET COUNT 128 10^3/uL (134-434); WHITE BLOOD COUNT 3.4 K/mm3 (4.0-10.0)
[2023-07-24 10:44] LABS: POTASSIUM 3.4 mmol/L (3.5-5.1)
[2023-07-24 10:49] LABS: ALBUMIN 3.5 g/dl (3.4-5.0)
[2023-07-24 10:51] LABS: BLOOD UREA NITROGEN 7.8 mg/dL (7-18); CALCIUM 8.7 mg/dL (8.5-10.1)
[2023-07-24 10:52] LABS: CREATININE 0.9 mg/dL (0.55-1.3)
[2023-07-24 10:54] LABS: TOT PROT 6.5 g/dl (6.4-8.2)
[2023-07-24] MEDS ORDERED: POTASSIUM CHLORIDE ORAL LIQUID 20 MEQ/15 ML PO ONE (14:15)
[2023-07-24] MEDS: GABAPENTIN 100 MG CAPSULE PO SCH (22:18)
[2023-07-24] MEDS: MELATONIN 5 MG TABLETS PO SCH (22:18)
[2023-07-24] MEDS: THIAMINE HCL 100 MG TABLET (FP) PO SCH (22:18)
[2023-07-24] MEDS: POTASSIUM CHLORIDE ORAL LIQUID 20 MEQ/15 ML PO SCH (22:19)
[2023-07-25] MEDS: chlordiazePOXIDE HCL 25 MG CAPSULE PO SCH ×4 (05:23→22:23)
[2023-07-25 10:21] LABS: POTASSIUM 3.7 mmol/L (3.5-5.1)
[2023-07-25] MEDS: POTASSIUM CHLORIDE ORAL LIQUID 20 MEQ/15 ML PO SCH ×2 (10:57→22:21)
[2023-07-25] MEDS: levETIRAcetam 500 MG TABLET (FP) PO SCH ×2 (10:57→22:22)
[2023-07-25] MEDS: PRENATAL VITAMINS W/ FOLIC ACID TABLET (FP) PO SCH (10:57)
[2023-07-25] MEDS: FLUoxetine HCL 10 MG CAPSULE PO SCH (10:58)
[2023-07-25] MEDS: MELATONIN 5 MG TABLETS PO SCH (22:21)
[2023-07-25] MEDS: GABAPENTIN 100 MG CAPSULE PO SCH (22:22)
[2023-07-25] MEDS: METHOCARBAMOL 500 MG TABLET PO PRN (22:22)
[2023-07-25] MEDS: THIAMINE HCL 100 MG TABLET (FP) PO SCH (22:22)
[2023-07-26] MEDS ORDERED: chlordiazePOXIDE HCL 10 MG CAPSULE PO PRN
[2023-07-26] MEDS: ACETAMINOPHEN 325 MG TABLET (FP) PO PRN ×2 (01:27→22:21)
[2023-07-26] MEDS: chlordiazePOXIDE HCL 10 MG CAPSULE PO SCH ×4 (05:42→22:19)
[2023-07-26] MEDS: FLUoxetine HCL 10 MG CAPSULE PO SCH (10:43)
[2023-07-26] MEDS: levETIRAcetam 500 MG TABLET (FP) PO SCH ×2 (10:43→22:20)
[2023-07-26] MEDS: PRENATAL VITAMINS W/ FOLIC ACID TABLET (FP) PO SCH (10:45)
[2023-07-26] MEDS: THIAMINE HCL 100 MG TABLET (FP) PO SCH (22:19)
[2023-07-26] MEDS: GABAPENTIN 100 MG CAPSULE PO SCH (22:20)
[2023-07-26] MEDS: MELATONIN 5 MG TABLETS PO SCH (22:20)
[2023-07-26] MEDS: METHOCARBAMOL 500 MG TABLET PO PRN (22:23)
[2023-07-27] MEDS ORDERED: chlordiazePOXIDE HCL 10 MG CAPSULE PO SCH (05:00)
[2023-07-27 09:43] VITALS: BP 129/88; PULSE 77; RESP 16; TEMP 97.9
[2023-07-28] MEDS ORDERED: chlordiazePOXIDE HCL 10 MG CAPSULE PO ONE (05:00)
== END 2023-07-27 09:57 | disposition home or self-care (01) | DRG 775 ==
LOC: YASAS 17:46 → Y3N 20:25
PROVIDERS: ADMIT Allergy & Immunology; ATTEND Surgery
PROC: HZ2ZZZZ Detoxification Services for Substance Abuse Treatment (ICD-10-PCS; principal; 2023-07-23)
DX: F10.230 Alcohol dependence with withdrawal, uncomplicated (principal); I10 Essential (primary) hypertension; Z87.891 Personal history of nicotine dependence; Z86.69 Personal history of other diseases of the nervous system and sense organs; Z86.2 Personal history of diseases of the blood and blood-forming organs and certain disorders involving the immune mechanism; Z88.8 Allergy status to other drugs, medicaments and biological substances
CPT/HCPCS: 36415; 71111-TC-FY; 80053; 82962; 84132; 84450; 84460; 85027; 86780; 87635; Q0162

== ENCOUNTER 2024-11-03 10:29 | Inpatient (IN) | payer OTHER ==
[2024-11-03] MEDS ORDERED: BISMUTH SUBSALICYLATE 262 MG/15 ML BTL PO PRN (10:56)
[2024-11-03] MEDS ORDERED: MAGNESIUM HYDROX 2400MG/30ML ORAL SUSPENSION 30 ML CUP PO PRN (10:56)
[2024-11-03] MEDS ORDERED: POLYETHYLENE GLYCOL (HEALTHYLAX) 3350 17 GM PACKET PO PRN (10:56)
[2024-11-03] MEDS ORDERED: NALOXONE (NARCAN) HCL 4 MG/0.1 ML SPRAY NS PRN (10:56)
[2024-11-03] MEDS ORDERED: chlordiazePOXIDE HCL 25 MG CAPSULE PO PRN (10:56)
[2024-11-03] MEDS ORDERED: BENZONATATE 200 MG CAPSULE PO PRN (10:56)
[2024-11-03] MEDS ORDERED: DICYCLOMINE HCL 10 MG CAPSULE PO PRN (10:56)
[2024-11-03] MEDS ORDERED: IBUPROFEN 400 MG TABLET (FP) PO PRN (10:56)
[2024-11-03 10:58] VITALS: BMI 28.1
[2024-11-03] MEDS ORDERED: chlordiazePOXIDE HCL 25 MG CAPSULE ONE (11:25)
[2024-11-03] MEDS: chlordiazePOXIDE HCL 25 MG CAPSULE PO SCH (11:27)
[2024-11-03] MEDS ORDERED: MAG HYDROX/AL HYDROX/SIMETH 30 ML UNIT-DOSE CUP ONE (11:34)
[2024-11-03] MEDS ORDERED: ACETAMINOPHEN 325 MG TABLET (FP) ONE (11:35)
[2024-11-03] MEDS: MAG HYDROX/AL HYDROX/SIMETH 30 ML UNIT-DOSE CUP PO PRN (11:36)
[2024-11-03] MEDS: ACETAMINOPHEN 325 MG TABLET (FP) PO PRN (11:36)
[2024-11-03] MEDS: ACAMPROSATE CALCIUM 333 MG TABLET.DR PO SCH (13:41)
[2024-11-03] MEDS: BRIMONIDINE TARTRATE 0.15% OPHTHALMIC 5 ML BOTTLE OU SCH (13:42)
[2024-11-03] MEDS: IBUPROFEN 600 MG TABLET (FP) PO PRN (15:19)
[2024-11-03] MEDS: ONDANSETRON *ODT* 4 MG TABLET SL PRN (17:10)
[2024-11-03] MEDS: METHOCARBAMOL 500 MG TABLET PO PRN (21:15)
[2024-11-03] MEDS: FAMOTIDINE 20 MG TABLET PO SCH (22:25)
[2024-11-03] MEDS: THIAMINE 100 MG TABLET PO SCH (22:25)
[2024-11-03] MEDS: GABAPENTIN 300 MG CAPSULE PO SCH (22:25)
[2024-11-03] MEDS: MELATONIN 5 MG TABLETS PO SCH (22:26)
[2024-11-04] MEDS: PRENATAL VITAMINS W/ FOLIC ACID TABLET (FP) PO SCH (10:47)
[2024-11-04 12:04] LABS: HEMATOCRIT 41.2 % (35.4-49); HEMOGLOBIN 13.7 GM/dL (11.7-16.9); MCH 33.3 pg (25.7-33.7); MCHC 33.3 g/dl (32.0-35.9); MEAN CELL VOLUME 100.1 fl (80-96); MEAN PLT VOLUME 10.1 fl (7.5-11.1); PLATELET COUNT 57 10^3/uL (134-434); RBC 4.11 M/mm3 (4.00-5.60); RDW 16.2 % (11.9-15.9); WHITE BLOOD COUNT 3.6 K/mm3 (4.0-10.0)
[2024-11-04 12:44] LABS: CALCIUM 8.8 mg/dL (8.5-10.1)
[2024-11-04 12:45] LABS: ALBUMIN 3.7 g/dl (3.4-5.0)
[2024-11-04 12:48] LABS: CREATININE 0.8 mg/dL (0.55-1.3)
[2024-11-04 12:50] LABS: BILIRUBIN,TOTAL 0.5 mg/dL (0.2-1); TOT PROT 6.9 g/dl (6.4-8.2)
[2024-11-04] MEDS ORDERED: LORazepam 1 MG TABLET PO PRN (14:12)
[2024-11-04] MEDS: LIDOCAINE 5% TOPICAL PATCH TP SCH (14:13)
[2024-11-04] MEDS: LORazepam 2 MG TABLET PO SCH (17:31)
[2024-11-04] MEDS: LIDOCAINE PATCH REMOVAL MC SCH (23:00)
[2024-11-05] MEDS ORDERED: chlordiazePOXIDE HCL 25 MG CAPSULE PO SCH (05:00)
[2024-11-05] MEDS: guaiFENesin 600 MG TABLET.ER (FP) PO PRN (05:56)
[2024-11-05] MEDS: hydrOXYzine PAMOATE 25 MG CAPSULE (FP) PO PRN (11:11)
[2024-11-05] MEDS: POTASSIUM CHLORIDE ORAL LIQUID 20 MEQ/15 ML PO SCH (14:08)
[2024-11-05] MEDS: HYDROCORTISONE 1% TOPICAL CREAM 30 GM TUBE TP PRN (14:08)
[2024-11-05] MEDS: IBUPROFEN 600 MG TABLET (FP) PO PRN (14:09)
[2024-11-06] MEDS ORDERED: chlordiazePOXIDE HCL 10 MG CAPSULE PO PRN
[2024-11-06] MEDS ORDERED: chlordiazePOXIDE HCL 10 MG CAPSULE PO SCH (05:00)
[2024-11-06] MEDS: LORazepam 1 MG TABLET PO SCH (05:28)
[2024-11-06] MEDS: LOPERAMIDE HCL 2 MG CAPSULE PO PRN (16:57)
[2024-11-07] MEDS ORDERED: LORazepam 0.5 MG TABLET PO PRN
[2024-11-07] MEDS ORDERED: chlordiazePOXIDE HCL 10 MG CAPSULE PO SCH (05:00)
[2024-11-07] MEDS: LORazepam 0.5 MG TABLET PO SCH (05:43)
[2024-11-07] MEDS: BENZOCAINE/MENTHOL (CHLORASEPTIC ) LOZENGE MM PRN (05:43)
[2024-11-07] MEDS: NALOXONE (NYS OPIOID OVERDOSE PROGRAM) 4 MG/0.1 ML SPRAY NS SCH (13:51)
[2024-11-07] MEDS: IBUPROFEN 400 MG TABLET (FP) PO ONE (20:25)
[2024-11-07 21:45] VITALS: TEMP 97.8
[2024-11-07] MEDS: MINERAL OIL/PET HY-PHL TOPICAL OINTMENT 454 GM JAR TP SCH (22:41)
[2024-11-08] MEDS ORDERED: chlordiazePOXIDE HCL 10 MG CAPSULE PO ONE (05:00)
[2024-11-08] MEDS: LORazepam 0.5 MG TABLET PO ONE (05:43)
[2024-11-08 06:44] VITALS: BP 112/73; PULSE 60; RESP 18
== END 2024-11-08 09:24 | disposition home or self-care (01) | DRG 775 ==
LOC: YASAS 10:29 → Y6N 11:44
PROVIDERS: ADMIT Allergy & Immunology; ATTEND Surgery
PROC: HZ2ZZZZ Detoxification Services for Substance Abuse Treatment (ICD-10-PCS; principal; 2024-11-03)
DX: F10.230 Alcohol dependence with withdrawal, uncomplicated (principal); F10.282 Alcohol dependence with alcohol-induced sleep disorder; F10.24 Alcohol dependence with alcohol-induced mood disorder; F10.280 Alcohol dependence with alcohol-induced anxiety disorder; F17.210 Nicotine dependence, cigarettes, uncomplicated; F41.9 Anxiety disorder, unspecified; F32.A Depression, unspecified; K21.9 Gastro-esophageal reflux disease without esophagitis; H40.9 Unspecified glaucoma; R21 Rash and other nonspecific skin eruption; E87.6 Hypokalemia; G47.00 Insomnia, unspecified; Z86.69 Personal history of other diseases of the nervous system and sense organs; Z56.0 Unemployment, unspecified
CPT/HCPCS: 36415; 80053; 80307; 82962; 83036; 84132; 84450; 85027; 86780; 93005; 93010; Q0162